=== PATIENT | male | born 1995 | race Caucasian/White ===

== ENCOUNTER → 2024-05-28 14:27 | Outpatient (REF) | payer OTHER, SELFPAY | LOC: DHSLP 14:27 | PROVIDERS: ATTENDING PHYSICIAN Internal Medicine; FAMILY PHYSICIAN Family Medicine | DX: G47.33 Obstructive sleep apnea (adult) (pediatric) (principal) | CPT/HCPCS: 95800 ==

== ENCOUNTER 2024-07-25 06:29 | Day surgery (SDC) | payer OTHER, SELFPAY ==
[2024-07-25] VITALS (8 sets, daily range): BP systolic 116–149; BP diastolic 70–99; BMI 47.4
[2024-07-25] MEDS: NORMOSOL-R/PLASMALYTE-A 1000 IV (06:42)
[2024-07-25] MEDS: DILAUDID 0.25 MG IV (08:56)
[2024-07-25] MEDS: ROXICODONE ORAL SOLUTION 5 MG PO (09:52)
== END 2024-07-25 10:20 | disposition home or self-care (01) ==
LOC: SDS 06:29
PROVIDERS: ATTENDING PHYSICIAN Otolaryngology
DX: J35.01 Chronic tonsillitis (principal); G47.33 Obstructive sleep apnea (adult) (pediatric)
CPT/HCPCS: 42826; 88304